=== PATIENT | female | born 1975 | race Caucasian/White ===

== ENCOUNTER 2016-08-23 08:15 | Emergency (ER) | payer MEDICAID, OTHER ==
[~2016-08-23] VITALS: Ht 157.5 cm; Wt 54.0 kg
[~2016-08-23 08:15] MED LIST: AMOX500T PO; BACL10TA PO; BENT20TA PO; CAMRTAB PO; LAMI250T PO; LEVO.2 PO; PRIL20CA9 PO; SOMA350T PO; SUMA50TA2 PO; SYNT25TA PO
[2016-08-23 08:17] VITALS: BP 112/78; PULSE 80; RESP 16; TEMP 98; O2SAT 96
[2016-08-23] MEDS ORDERED: RESP: ALBUTEROL 2.5 MG/3 ML NEB (SCH) INH ONE (09:00)
[2016-08-23] MEDS ORDERED: predniSONE 20 MG TAB PO ONE (09:00)
[2016-08-23] MEDS ORDERED: ALBUAER3 INH (09:02)
[2016-08-23] MEDS ORDERED: MOME17I EACH NARE (09:02)
[2016-08-23] MEDS ORDERED: AZIT500T2 PO (09:02)
[2016-08-23] MEDS ORDERED: BENZ100 PO (09:02)
[2016-08-23] MEDS ORDERED: PRED-503 PO (09:02)
--- NOTE | 2016-08-23 09:02 | PD ---
HPI Chief Complaint: Cold / Flu Symptoms Time Seen by Provider: 08:52 Travel History International Travel<30 days: Yes Contact w/Intl Traveler<30days: Yes Name of Country Traveled to: [facility] Traveled to known affect area: No History of Present Illness HPI 40-year-old female presents to the emergency Department with complaint of cough , nasal congestion, chest congestion 10 days after coming back from a cruise to the [facility]. She followed up with her primary care provider on Saturday and was told that the illness is viral. She was given a prescription for amoxicillin but was told to not take it unless she developed a fever greater than 104.0. Symptoms have worsened and moved into her chest. Reports fever of 100.4 to 101.0 yesterday. Denies ear pain, sore throat. She did have a sore throat in the beginning which was burning but has since subsided. Reports chest tightness, shortness of breath, wheezing. Reports green/yellow colored phlegm. Denies abdominal pain, nausea, vomiting. Has tried [id number] medications with no relief of symptoms. Reports allergy to penicillin; says she doesn't have an allergy she just like the way it tastes. Says she can take amoxicillin. History of hypothyroidism and takes Synthroid. Currently on control. No other modifying factors or associated signs and symptoms. PFSH Past Medical History ADD: No Anxiety: Yes Cirrhosis: Yes Diabetes: No Diminished Hearing: No Fibromyalgia: Yes Musculoskeletal: Yes (DJD/chronic back pain) Immunizations Current: Yes Migraines: Yes Thyroid Disease: Yes PNEUMOCCOCAL Vaccine (Year): 2010 ?: Not : 3 Para: 2 Miscarriage: 1 : 2 Past Surgical History Other Surgery: Yes (HAND SURGERY) Social History Alcohol Use: Yes (occassional) Tobacco Use: No Substance Use: No Allergies-Medications (Allergen,Severity, Reaction): Coded Allergies: Penicillin (Verified Adverse Reaction, Severe, NAUSEA, 08/16/16) Reported Meds & Prescriptions Reported Meds & Active Scripts Active Nasonex Nasal [place] (Mometasone Furoate) 50 Mcg/Act Naspr 2 [place] EACH NARE DAILY PRN Deltasone (Prednisone) 20 Mg Tab 40 Mg PO DAILY 4 Days start 08/24/2016 Tessalon Perles (Benzonatate) 100 Mg Cap 100 Mg PO TID PRN Proair Hfa 8.5 GM Inh (Albuterol Sulfate) 90 Mcg/Act Aer 2 Puff INH Q4-6H PRN 108 mcg/actuation Azithromycin 500 Mg Tab 500 Mg PO DAILY Amoxicillin 500 Mg Tab 500 Mg PO BID Synthroid (Levothyroxine Sodium) 25 Mcg Tab 25 Mcg PO DAILY Lamisil (Terbinafine) 250 Mg Tab 250 Mg PO DAILY Sumatriptan (Sumatriptan Succinate) 50 Mg Tab 50 Mg PO DIRECTED PRN If a satisfactory response has not been obtained at 2 hours, a second dose may be administered Baclofen 10 Mg Tab 5 Mg PO HS PRN Camrese (Levonorgestrel-Ethinyl Estradiol) 0.15-0.03-0.01 Mg Tab 1 Tab PO DAILY Reported Synthroid (Levothyroxine Sodium) 200 Mcg Tab 200 Mcg PO DAILY Bentyl (Dicyclomine HCl) 20 Mg Tab 20 Mg PO Q6HR PRN Prilosec (Omeprazole) 20 Mg Cap 20 Mg PO BID Soma (Carisoprodol) 350 Mg Tab 350 Mg PO TID PRN Review of Systems Except as stated in HPI: all other systems reviewed are Neg Physical Exam Narrative GENERAL: Well-nourished, well-developed patient, in no acute distress; afebrile , nontoxic-appearing SKIN: Warm and dry. No rash. HEAD: Atraumatic. Normocephalic. EYES: Pupils equal and round at 3 mm with brisk reaction. No scleral icterus. No injection or drainage. PERRLA. ENT: Mucosa pink and moist. No erythema or exudates. No uvular edema. No uvular , palatal, or tonsillar deviation. Airway patent. EARS: Bilateral pinnae and external canals appear within normal limits. Bilateral tympanic membranes without erythema, dullness or perforation. NECK: Trachea midline. No lymphadenopathy. CARDIOVASCULAR: Regular rate and rhythm. No murmur appreciated. RESPIRATORY: No accessory muscle use. Clear to auscultation with decreased breath sounds bilateral bases. Breath sounds equal bilaterally. No audible wheezing. No retractions or tachypnea. GASTROINTESTINAL: Abdomen soft, non-tender, nondistended. Hepatic and splenic margins not palpable. Bowel sounds are active 4 quadrants. MUSCULOSKELETAL: No obvious deformities. No clubbing. No cyanosis. No edema. NEUROLOGICAL: Awake and alert. Oriented 3. No obvious cranial nerve deficits. Motor grossly within normal limits. Normal speech. Moves all extremities. 5/5 strength to all extremities. PSYCHIATRIC: Appropriate mood and affect; insight and judgment normal. Data Data Last Documented VS Vital Signs Date Time Temp Pulse Resp B/P Pulse Ox O2 Delivery O2 Flow Rate FiO2 08/23/16 08:17 98.0 80 16 112/78 96 Orders Chest, Single Ap (08/23/16 08:51) Prednisone (Deltasone) (08/23/16 09:00) Albuterol Neb (Albuterol Neb) (08/23/16 09:00) [facility] Medical Decision Making Medical Screen Exam Complete: Yes Emergency Medical Condition: Yes Medical Record Reviewed: Yes Differential Diagnosis Bronchitis, pneumonia, influenza, upper respiratory infection Narrative Course 40-year-old female physical exam and history of present illness consistent with upper respiratory infection and bronchitis. Patient is in no acute distress and her oxygen saturation is 96% on room air. No audible wheezing. Lung sounds are clear and equal throughout with decreased lung sounds in bilateral bases. She is afebrile and nontoxic-appearing. Chest x-ray, DuoNeb nebulizer, Deltason ordered. 0936: Chest x-ray with no acute findings. Reexamination the patient says she doesn't feel much different after the nebulizer treatment. Her lungs are clear and equal throughout with improved air flow to bilateral bases. Patient is comfortable being discharged home and declines a second nebulizer treatment. Azithromycin, proair inhaler, Deltasone, Tessalon Perles, Nasonex nasal spray prescribed for home. Patient verbalizes understanding and agreement with treatment plan. Patient is medically cleared and stable for discharge. Discussed reasons to return to the emergency department. Instructed patient to follow up with primary care provider. Patient agrees with treatment plan. The patients vital signs are stable and the patient is stable for outpatient follow- up and treatment. Patient discharged home, stable and in no acute distress. Diagnosis Primary Impression: Bronchitis Referrals: Primary Care Physician Patient Instructions: Acute Bronchitis (ED), General Instructions, Safe Use of Cough and Cold Medicines (ED) Departure Forms: Tests/Procedures, Work Release Enter return to work date: Aug 25, 2016 Additional Instructions: Use Albuterol inhaler as prescribed Take oral steroids as prescribed and complete full course Use Tessalon Perles as prescribed to decrease coughing spasms [id number] decongestants or antihistamines as directed and as needed for symptom management Your cough can last 4-6 weeks Drink plenty of fluids to prevent dehydration Use hot air humidifier to decrease cough exacerbation Turn off ceiling fans and sleep with head of bed elevated Avoid triggers such as second hand smoke, dust, known allergens Follow-up with your primary care provider Return to the emergency department immediately with worsening of symptoms Med/Other Pt SpecificInfo: Prescription(s) given Scripts Mometasone Nasal [place] (Nasonex Nasal [place])50 Mcg/Act Naspr2 [place] EACH NARE DAILY PRN (NASAL CONGESTION) #1 BOTTLE Ref 0 Prov:Kayla Cardenas 08/23/16 Prednisone (Deltasone)20 Mg Tab40 Mg PO DAILY 4 Days Ref 0 start 08/24/2016 Prov:Kayla Cardenas 08/23/16 Benzonatate (Tessalon Perles)100 Mg [id number] Mg PO TID PRN (COUGH) #20 CAP Ref 0 Prov:Kayla Cardenas 08/23/16 Albuterol 8.5 GM Inh (Proair Hfa 8.5 GM Inh)90 Mcg/Act Aer2 Puff INH Q4-6H PRN ( SOB/WHEEZING) #1 INHALER Ref 0 108 mcg/actuation Prov:Kayla Cardenas 08/23/16 Azithromycin 500 Mg [id number] Mg PO DAILY #5 TAB Ref 0 Prov:Kayla Cardenas 08/23/16 Disposition: 01 DISCHARGE HOME Condition: Stable Kayla Cardenas Aug 23, 2016 09:02
--- NOTE | 2016-08-23 09:33 | RADRPT ---
EXAM DATE/TIME: 08/23/2016 09:11 [facility] COMPARISON: CHEST SINGLE AP, August 21, 2012, 9:27. INDICATIONS : Patient has had a sore throat, productive cough and been short of breath. MEDICAL HISTORY : None. SURGICAL HISTORY : None. ENCOUNTER: Initial ACUITY: 2 weeks PAIN SCORE: 7/10 LOCATION: Bilateral chest FINDINGS: A single view of the chest demonstrates the lungs to be symmetrically aerated without evidence of mas s, infiltrate or effusion. The cardiomediastinal contours are unremarkable. Osseous structures are intact.CONCLUSION: No acute disease. Hugh Mehta MD on August 23, 2016 at 9:31 Board Certified Radiologist. This report was verified electronically.
[2016-09-18] MEDS ORDERED: SUMA50TA2 PO (10:21)
[2016-10-19] MEDS ORDERED: AMIT10TA6 PO (15:26)
[2016-10-30] MEDS ORDERED: GABA100C4 PO (11:05)
[2016-11-05] MEDS ORDERED: LEVO.2 PO (13:56)
== END 2016-08-23 10:06 | disposition home or self-care (01) ==
LOC: NEPB 08:15
DX: J40 Bronchitis, not specified as acute or chronic (principal); E03.9 Hypothyroidism, unspecified; M79.7 Fibromyalgia
CPT/HCPCS: 71010; 94664; 99284; J7512; J7613

== ENCOUNTER → 2016-09-14 | Outpatient (CLI) | payer OTHER ==
[~2016-09-14] MED LIST changes: +ALBUAER3 INH; +AMIT10TA6 PO; -AMOX500T PO; +BENZ100 PO; +GABA100C4 PO; +MOME17I EACH NARE
--- NOTE | 2016-09-14 11:54 | RADRPT ---
EXAM DATE/TIME: 09/14/2016 11:32 [facility] COMPARISON: No previous studies available for comparison. INDICATIONS : Cough, chest tightness, bronchitis. MEDICAL HISTORY : None. SURGICAL HISTORY : None. ENCOUNTER: Initial ACUITY: 1 month PAIN SCORE: 2/10 LOCATION: Bilateral chest FINDINGS: PA and lateral views of the chest demonstrate the lungs to be symmetrically aerated without evidence of mass, infiltrate or effusion. The cardiomediastinal contours are unremarkable. Osseous structure s are intact. CONCLUSION: No acute disease. Herminio De Dios MD on September 14, 2016 at 11:52 Board Certified Radiologist. This report was verified electronically.
== END ==
LOC: HRAD 11:20
PROVIDERS: ATTEND Family Medicine
DX: R05 Cough (principal)
CPT/HCPCS: 71020